=== PATIENT | female | born 1940 | race American Indian/Alaskan Native ===

== ENCOUNTER 2019-03-12 10:45 | Emergency (ER) | payer OTHER, MEDICARE ==
[2019-03-12 10:53] VITALS: BP 176/77
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
== END 2019-03-12 13:15 | disposition home or self-care (01) ==
LOC: ED 10:45
DX: M25.551 Pain in right hip (principal); M79.18 Myalgia, other site; I10 Essential (primary) hypertension; E11.9 Type 2 diabetes mellitus without complications; Z90.710 Acquired absence of both cervix and uterus
CPT/HCPCS: 73521